=== PATIENT | female | born 1995 | race Caucasian/White ===

== ENCOUNTER 2020-06-16 15:13 | Outpatient (CLI) | payer BC, SELFPAY ==
[2020-06-16 15:44] LABS: Abs Immature Grans 0.02 10^3/uL (0.0-0.06); Absolute Basophil Count 0.03 10^3/uL (0.0-0.2); Absolute Eosinophil Count 0.15 10^3/uL (0.0-0.7); Absolute Lymphocyte Count 4.16 10^3/uL (1.2-3.4); Absolute Monocyte Count 0.71 10^3/uL (0.1-0.8); Basophils % 0.3; Eosinophils % 1.4; HCT 36.1 % (36.0-46.0); HGB 11.2 g/dL (11.2-15.7); Immature Grans % 0.2; Lymphocytes % 39.7; MCH 23.9 pg (27.0-33.0); MPV 9.4 fL (8.0-11.0); Monocytes % 6.8; Neutrophils % 51.6; Nucleated RBC 0 %; Platelet Count 349 10^3/uL (130-400); RBC 4.69 10^6/uL (3.93-5.22); RDW 16.8 % (11.7-14.6); RDW-SD 46.4 fL; WBC 10.47 10^3/uL (4.4-10.8)
[2020-06-16 16:00] LABS: ALT 18 U/L (14-59); AST 12 U/L (15-37); Albumin 3.6 g/dL (3.4-5.0); Alkaline Phosphatase 94 U/L (46-116); Anion Gap 6.7 mmol/L (3-11); BUN 10 mg/dL (7-18); Bilirubin, Total 0.2 mg/dL (0.2-1.0); CO2 28.3 mmol/L (21.0-32.0); CREATININE 0.8 mg/dL (0.55-1.02); Calcium 8.6 mg/dL (8.5-10.1); Chloride 103 mmol/L (98-107); Glucose 124 mg/dL (74-106); Potassium 3.3 mmol/L (3.5-5.1); Sodium 138 mmol/L (136-145); Total Protein 8.1 g/dL (6.4-8.2)
[2020-06-16 16:25] LABS: TSH (W/Ref FT4) 1.58 uIU/mL (0.36-3.74)
[2020-06-16 22:03] LABS: FSH 3.9 mIU/mL (See Note); LH 10.3 mIU/mL (See Note)
[2020-06-20 21:28] LABS: 17-Hydroxyprogesterone 81 ng/dL
== END 2020-06-16 15:14 | disposition home or self-care (01) ==
LOC: LBO 15:14
PROVIDERS: PCP Internal Medicine; Visit Provider Obstetrics & Gynecology
DX: N93.8 Other specified abnormal uterine and vaginal bleeding (principal)
CPT/HCPCS: 36415; 80053; 83001; 83002; 83498; 84443; 85025

== ENCOUNTER 2020-07-04 00:58 | Outpatient (CLI) | payer BC, SELFPAY ==
--- NOTE | 2020-07-04 06:45 | DI.US_ITS ---
EXAM: US PELVIS CLINICAL HISTORY: DYSFUNCTIONAL UTERINE BLEEDING,N93.8,CHECK ANATOMY TECHNIQUE: Ultrasound of the pelvis was performed transabdominally using the urinary bladder is an a coustic window. COMPARISON: No exams were available for comparison FINDINGS: UTERUS: Measures 7 cm length x 2.7 cm AP x 4.2 cm wide. There are no uterine fibroids. Endometrial thickness measures 9-10 mm. There is no fluid in the endometrial canal. CERVIX: There are no obvious nabothian cysts. RIGHT OVARY: Measures 3.5 x 2.6 x 2.8 cm No significant cysts nor masses evident in the right ovary. LEFT OVARY: Measures 0.5 x 2.3 x 2.7 cm No significant cysts nor masses evident in the left ovary. CUL-DE-SAC: No free fluid evident. IMPRESSION: 1. Normal appearing uterus and age-appropriate endometrium. 2. No abnormal ovarian findings. 3. No free fluid evident in the adnexal regions and cul-de-sac. If clinically indicated transvaginal study can be performed. DATA REPOSITORY:
== END 2020-07-04 01:18 ==
PROVIDERS: PCP Internal Medicine; Visit Provider Obstetrics & Gynecology
DX: N93.8 Other specified abnormal uterine and vaginal bleeding (principal)
CPT/HCPCS: 76856